=== PATIENT | female | born 1990 | race Two or more races ===

== ENCOUNTER 2018-12-23 19:30 | Emergency (ER) | payer MEDICAID ==
[~2018-12-23] VITALS: Ht 170.2 cm; Wt 66.6 kg
[2018-12-23 22:29] VITALS: BP 110/76
== END 2018-12-23 22:30 | disposition home or self-care (01) ==
LOC: ER 19:30
DX: J02.0 Streptococcal pharyngitis (principal); B00.1 Herpesviral vesicular dermatitis; F12.10 Cannabis abuse, uncomplicated; M19.90 Unspecified osteoarthritis, unspecified site; Z97.5 Presence of (intrauterine) contraceptive device
CPT/HCPCS: 99283

== ENCOUNTER 2019-09-10 15:06 | Emergency (ER) | payer MEDICAID ==
[~2019-09-10] VITALS: Ht 167.6 cm; Wt 65.0 kg
[2019-09-10 17:12] VITALS: BP 109/72
[2019-09-10 17:17] LABS: BASOPHILS % 0.3 % (0.0-2.0); EOSINOPHILS % 0.4 % (0.0-5.0); HEMATOCRIT. 41.6 % (36.0-48.0); HEMOGLOBIN. 14.3 g/dL (12.0-16.0); LYMPHOCYTES % 23.6 % (20.0-50.0); MEAN CORPUSCULAR HEMOGLOBIN 31.5 pg (28.0-32.0); MEAN CORPUSCULAR VOLUME 91.8 fL (81.0-99.0); MEAN PLATELET VOLUME 9.2 fl (7.4-10.4); MONOCYTES % 7.9 % (2.0-8.0); NEUTROPHILS % 67.8 % (40.0-76.0); PLATELET 231 x1000/uL (130-400); RED BLOOD CELL COUNT 4.53 mill/uL (4.2-5.4); RED CELL DISTRIBUTION WIDTH 12.6 % (11.6-14.6)
[2019-09-10 17:20] LABS: CHLORIDE 108 mEq/L (98-107)
[2019-09-10 17:26] LABS: HCG SCREEN NEGATIVE
== END 2019-09-10 19:32 | disposition left against medical advice (07) ==
LOC: ER 15:06
DX: R05 Cough (principal); R09.81 Nasal congestion; F12.10 Cannabis abuse, uncomplicated
CPT/HCPCS: 36415; 70486; 80048; 81025; 84703; 99284

== ENCOUNTER 2022-08-17 12:16 | Emergency (ER) | payer MEDICAID ==
[~2022-08-17] VITALS: Ht 170.2 cm; Wt 60.0 kg
[2022-08-17 12:45] VITALS: BP 103/66
[2022-08-17] MEDS ORDERED: ADAL40PE SQ (12:48)
[2022-08-17] MEDS ORDERED: METHYLPREDNISOLONE SOD SUCC 125 MG/2 ML VIAL IV STA (18:26)
[2022-08-17] MEDS ORDERED: ONDANSETRON HCL 4MG/2ML INJ IV STA (18:26)
[2022-08-17] MEDS ORDERED: SODIUM CHLORIDE 0.9% 1,000 ML IV ONE (18:30)
[2022-08-17] MEDS: ALBUTEROL (0.083%) 2.5MG/3ML NEB HHN SCH ×3 (19:20→20:20)
[2022-08-17 19:39] LABS: BASOPHILS % 0.3 % (0.0-2.0); EOSINOPHILS % 0.3 % (0.0-5.0); HEMATOCRIT. 42.3 % (36.0-48.0); HEMOGLOBIN. 14.6 g/dL (12.0-16.0); LYMPHOCYTES % 28.1 % (20.0-50.0); MEAN CORPUSCULAR HEMOGLOBIN 31.2 pg (28.0-32.0); MEAN CORPUSCULAR VOLUME 90.1 fL (81.0-99.0); MEAN PLATELET VOLUME 9.9 fl (7.4-10.4); MONOCYTES % 13.4 % (2.0-8.0); NEUTROPHILS % 57.9 % (40.0-76.0); PLATELET 193 x1000/uL (130-400); RED BLOOD CELL COUNT 4.69 mill/uL (4.2-5.4); RED CELL DISTRIBUTION WIDTH 12.8 % (11.6-14.6)
[2022-08-17 19:44] LABS: CLARITY URINE CLOUDY (CLEAR); COLOR URINE DARK YELLOW (YELLOW); KETONES URINE 3+ (NEGATIVE); LEUKOCYTE ESTERASE URINE 1+ (NEGATIVE); NITRITE URINE NEGATIVE (NEGATIVE); OCCULT BLOOD URINE 3+ (NEGATIVE); PH URINE 5.5 (4.5-8.0); PROTEIN URINE 1+ (NEGATIVE); SPECIFIC GRAVITY URINE 1.021 (1.005-1.030)
[2022-08-17 19:49] LABS: CHLORIDE 103 mEq/L (98-107)
[2022-08-17] MEDS ORDERED: CEFTRIAXONE 1 G PREMIX 50 ML IV ONE (20:45)
[2022-08-17] MEDS ORDERED: CEPH500C2 MT (21:51)
[2022-08-17] MEDS ORDERED: ALBU6.7H15 INH (21:51)
[2022-08-17] MEDS ORDERED: P50 MT (21:51)
== END 2022-08-17 22:32 | disposition home or self-care (01) ==
LOC: ER 12:29
DX: M79.18 Myalgia, other site (principal); R50.9 Fever, unspecified; R05.9 Cough, unspecified; F12.10 Cannabis abuse, uncomplicated
CPT/HCPCS: 36415; 71045; 80053; 81003; 81025; 83690; 85025; 93005; 94640; 96361; 96365; 96375; 99285; J0696; J2405; J2930; J7030; Z7610